=== PATIENT | male | born 1975 | race Two or more races ===

== ENCOUNTER 2017-04-23 23:13 | Emergency (ER) | payer SELFPAY ==
[2017-04-23] MEDS ORDERED: ALBUTEROL SO4 2.5/IPRATROPIUM 0.5 INH SOL 3 ML VIAL.NEB. NEB STA (23:16)
[2017-04-23] MEDS ORDERED: FAMOTIDINE 20 MG/50 ML IVPB 20 MG in PREMIX 50 IVPB ONE (23:16)
[2017-04-23] MEDS ORDERED: methylPREDNISolone NA SUCC 125 MG/2 ML VIAL IVPB ONE (23:16)
--- NOTE | 2017-04-23 23:16 | PDOC ---
History of Present Illness - General History Source: Patient Exam Limitations: No Limitations - History of Present Illness Initial Comments: 04/23/17 23:34 The patient is a 42 year old male with a past medical history of lobster allergies who presents to the emergency department with shortness of breath for 15 minutes. The patient states that he ate shrimp and began to have difficulty breathing. He reports associated face and throat swelling and erythema. <Varinder Jefferson - Last Filed: 04/23/17 23:34> - General History Source: Patient <Percy Garcia - Last Filed: 04/24/17 03:13> - General Stated Complaint: ALLERGIC REACTION Time Seen by Provider: 04/23/17 23:15 Past History <Varinder Jefferson - Last Filed: 04/23/17 23:34> <Percy Garcia - Last Filed: 04/24/17 03:13> - Past Medical History Allergies/Adverse Reactions: Allergies Allergy/AdvReac Type Severity Reaction Status Date / Time lobster Allergy Uncoded 04/23/17 23:25 Home Medications: Ambulatory Orders Diphenhydramine HCl [Benadryl Capsules -] 25 mg PO TID #30 capsule 04/24/17 Methylprednisolone [Medrol Dose Zelalem] 4 mg PO ASDIR #21 tablet 04/24/17 Review of Systems - Review of Systems Able to Perform ROS?: Yes Comments:: 04/23/17 23:34 CONSTITUTIONAL: Absent: fever, chills, diaphoresis, generalized weakness, malaise, loss of appetite HEENT: (+) Facial swelling, throat swelling. Facial erythema Absent: rhinorrhea, nasal congestion, ear pain, eye pain, visual Changes CARDIOVASCULAR: Absent: chest pain, syncope, palpitations, irregular heart rate, lightheadedness , peripheral edema RESPIRATORY: Absent: cough, shortness of breath, dyspnea with exertion, orthopnea, wheezing, stridor, hemoptysis GASTROINTESTINAL: Absent: abdominal pain, abdominal distension, nausea, vomiting, diarrhea, constipation, melena, hematochezia GENITOURINARY: Absent: dysuria, frequency, urgency, hesitancy, hematuria, flank pain, genital pain MUSCULOSKELETAL: Absent: myalgia, arthralgia, joint swelling SKIN: Absent: rash, itching, pallor HEMATOLOGIC/IMMUNOLOGIC: Absent: easy bleeding, easy bruising, lymphadenopathy, frequent infections ENDOCRINE: Absent: unexplained weight gain, unexplained weight loss, heat intolerance, cold intolerance NEUROLOGIC: Absent: headache, focal weakness or paresthesias, dizziness, unsteady gait, seizure, mental status changes, bladder or bowel incontinence PSYCHIATRIC: Absent: anxiety, depression, suicidal or homicidal ideation, hallucinations. <Varinder Jefferson - Last Filed: 04/23/17 23:34> *Physical Exam - Vital Signs Last Vital Signs Temp Pulse Resp BP Pulse Ox 111 H 22 121/95 96 04/23/17 23:23 04/23/17 23:23 04/23/17 23:23 04/23/17 23:23 - Physical Exam Comments: 04/23/17 23:34 GENERAL: Well developed, well nourished. Awake and alert. HEENT: (+) Facial swelling, swelling to both eyelids, nasal congestion with clear rhinorrhea. Normocephalic, atraumatic. PERRLA, EOMI. No conjunctival pallor. Sclerae are non-icteric. Moist mucous membranes. Oropharynx is clear. NECK: Supple. Full ROM. No JVD. Carotid pulses 2+ and symmetric, without bruits. No thyromegaly. No lymphadenopathy. CARDIOVASCULAR: Regular rate and rhythm. No murmurs, rubs, or gallops. Distal pulses are 2+ and symmetric. PULMONARY: (+) Active wheezing bilateral with decreased breath sounds. No rales or rhonchi. ABDOMINAL: Soft. Non-tender. Non-distended. No rebound or guarding. No organomegaly. Normoactive bowel sounds. MUSCULOSKELETAL Normal range of motion at all joints. No bony deformities or tenderness. No CVA tenderness. EXTREMITIES: No cyanosis. No clubbing. No edema. No calf tenderness. SKIN: Warm and dry. Normal capillary refill. No rashes. No jaundice. NEUROLOGICAL: Alert, awake, appropriate. Cranial nerves 2-12 intact. No deficits to light touch and temperature in face, upper extremities and lower extremities. No motor deficits in the in face, upper extremities and lower extremities. Normoreflexic in the upper and lower extremities. Normal speech. Toes are downgoing bilaterally. Gait is normal without ataxia. PSYCHIATRIC: Cooperative. Good eye contact. Appropriate mood and affect. <Varinder Jefferson - Last Filed: 04/23/17 23:34> ED Treatment Course - Medications Given in the ED: ED Medications Discontinued Medications Generic Name Dose Route Start Last Admin Trade Name Mona PRN Reason Stop Dose Admin Albuterol/Ipratropium 1 amp 04/23/17 23:16 04/23/17 23:32 Duoneb - NEB 04/23/17 23:17 1 amp ONCE STA Administration Diphenhydramine HCl 25 mg 04/23/17 23:16 04/23/17 23:32 Benadryl Injection - IVPB 04/23/17 23:17 25 mg ONCE ONE Administration Methylprednisolone Sodium Succinate 125 mg 04/23/17 23:16 04/23/17 23:32 Solu-Medrol - IVPB 04/23/17 23:17 125 mg ONCE ONE Administration <Varinder Jefferson - Last Filed: 04/23/17 23:34> Medical Decision Making - Medical Decision Making 04/24/17 00:54 Dr. Garcia: The scribe's documentation has been prepared under my direction and personally reviewed by me in its entirery. I confirm that the note above accurately reflects all work, treatment, procedures, and medical decision making performed by me. Pt feels better after treatment. NO longer wheezing. Pt to be observed a a bit longer 04/24/17 03:11 Pt is now awake and no longer wheezing. Meds sent to pharmacy... Rx Medrol dose zelalem and Benadryl. <Percy Garcia - Last Filed: 04/24/17 03:13> *DC/Admit/Observation/Transfer - Attestations Scribe Attestion: 04/23/17 23:34 Documentation prepared by Varinder Jefferson, acting as medical language specialist for Percy Garcia DO. <Varinder Jefferson - Last Filed: 04/23/17 23:34> - Discharge Dispostion Admit: No <Percy Garcia - Last Filed: 04/24/17 03:13> Diagnosis at time of Disposition: Allergic reaction to shellfish - Discharge Dispostion Disposition: HOME Condition at time of disposition: Improved - Prescriptions Prescriptions: Diphenhydramine HCl [Benadryl Capsules -] 25 mg PO TID #30 capsule Methylprednisolone [Medrol Dose Zelalem] 4 mg PO ASDIR #21 tablet - Referrals Referrals: Aretha Palacios MD [Staff Physician] - - Patient Instructions Printed Discharge Instructions: DI for General Allergic Reactions Additional Instructions: avoid any and all shellfish. Take medication as directed. Follow up with your doctor or the doctor provided. Print Language: TAMAZIGHT
[2017-04-23 23:27] VITALS: BMI 33.4
[2017-04-24 01:35] VITALS: BP 107/60; PULSE 64
== END 2017-04-24 03:15 | disposition home or self-care (01) ==
LOC: JER 23:13
PROC: 3E0F7GC Introduction of Other Therapeutic Substance into Respiratory Tract, Via Natural or Artificial Opening (ICD-10-PCS; principal; 2017-04-23)
PROC: 3E033GC Introduction of Other Therapeutic Substance into Peripheral Vein, Percutaneous Approach (ICD-10-PCS; 2017-04-23)
PROC: 3E0333Z Introduction of Anti-inflammatory into Peripheral Vein, Percutaneous Approach (ICD-10-PCS; 2017-04-23)
DX: T78.1XXA Other adverse food reactions, not elsewhere classified, initial encounter (principal); T78.3XXA Angioneurotic edema, initial encounter; X58.XXXA Exposure to other specified factors, initial encounter; Z91.013 Allergy to seafood
CPT/HCPCS: 99282-25